=== PATIENT | male | born 1990 | race Caucasian/White ===

== ENCOUNTER 2020-01-10 14:55 | Day surgery (SDC) | payer OTHER ==
[~2020-01-10] VITALS: Ht 182.9 cm; Wt 79.4 kg
--- NOTE | 2020-01-10 14:20 | NUR ---
RECEIVED PT VIA [facility] FROM [facility] WITH ACLS ATTENDANTS. TRANSFERRED TO [facility]. PT AWAKE AND ALERT. ORIENT TO UNIT AND PLAN OF CARE. CONNECTED TO MAINTENANCE LEADER SHOWS SINUS TACH RATE 107. TEMP 100.4 TEMPORAL. PENIS ERECTION NOTED. PAIN SCALE 10/10 WITH RESTLESS AND PAIN WITH MOVEMENT. ONCE AT REST PT IS CALM. IZA WIPES COMPLETED. #18 G SALINE LOCK TO LAC. HISTORY OBTAINED. NKA. REPORTS "GETS TESTED WEEKLY AT [facility] FOR COVID-19 SINCE I DONATE PLATELETS EVERY WEEK. TEST HAS BEEN NEGATIVE. NO TESTING DONE AT [facility]. SIDE RAILS UP X2. CALL LIGHT IN REACH. CALL TO ADMITTING. CALL TO [facility], SPOKE WITH ROLLY JEFFRIES. WILL CONTINUE TO MONITOR.
--- NOTE | 2020-01-10 15:00 | NUR ---
DR NASH HERE. CHART REVIEWED. ORDERS PLACED. AWAITING ADMITTING TO COMPLETE ADMISSION FORMS.
--- NOTE | 2020-01-10 15:20 | NUR ---
CALL REPORT TO ELYSSA ARITA PACU. UPDATED WITH PT STATUS AND HISTORY.
--- NOTE | 2020-01-10 15:30 | NUR ---
TEMP 102.5 TEMPORAL. CALL REPORT TO ROSALBA ARITA PACU. COOLING MEASURES STARTED. CONSENT REVIEWED AND SIGNED. ARMBAND IN PLACE FROM ADMITTING. FALL PRECAUTIONS.
--- NOTE | 2020-01-10 15:55 | NUR ---
IV OBTAINED FROM PHARMACY D5NS. STARTED AT 75CC/HR ORDERED. PT CONNECTED TO PORTABLE FINAL INSTALLER INSPECTOR. ARMBAND IDENTIFIED.
--- NOTE | 2020-01-10 16:00 | NUR ---
PT TAKEN TO HOLDING AREA VIA [employer] AT THIS TIME WITH BELONGINGS BAG ON [employer] BLACK BACKPACK AND CELLPHONE IN BAG.
[2020-01-10 16:02] VITALS: BP 135/93
--- NOTE | 2020-01-10 16:11 | NUR ---
PT REQUESTED TO CALL SISTER HUMZA AND UPDATE HER THAT HE IS HERE AT [facility] [place]. CALL TO CELL PHONE FOR HUMZA, NO ANSWER, MESSAGE LEFT.
--- NOTE | 2020-01-10 20:30 | NUR ---
PT IS ALERT AND ORIENTED X4, BREATHING REGULAR AND UNLABORED ON ROOM AIR. PT ARRIVED TO FLOOR VIA GURNEY FROM OR, S/P CORPORAL DILATION AND DISTAL PENILE SHUNT. PT IS AGITATED AND REQUESTING FOOD PENDING DIET ORDER, AND IS ABLE TO MAKE NEEDS KNOWN. INDWELLING VARGHESE CATHETER IS DRAINING TO GRAVITY, CLEAR YELLOW URINE, AND SURGICAL DRESSING TO PENIS IS CLEAN, DRY, AND INTACT. TELE #2, NSR ON MONITOR. WILL CONTINUE TO MONITOR.
--- NOTE | 2020-01-10 20:31 | NUR ---
RECEIVED PT FROM OR. PT ADMIT FOR PRIAPRISM, S/P CORPORAL DILATION, DISTAL PENILE SHUNT. PT IS A/O X4, VERBAL RESPONSIVE. LUNG SOUND CLEAR BILATERAL, NO COUGH, NO SOB. PT IS ON TELE 2, NSR, DENY ANY CHEST PAIN OR DISCOMFORT, BOWEL SOUND PRESENT ALL 4 QUADRANTS, NO DISTENTION, NO TENDER. PEDAL PULSE PRESENT BOTH FEET, NO EDEMA, PT HAS DRESSING AT GENITAL AREA, FIRST DRESSING, UNABLE TO REMOVE AND TAKE PIX. VARGHESE CATH IN PLACE. URINE IS YELLOW AT THIS TIME. PT IS NOT COOPERATED AT THIS TIME, REFUSED ANSWER SOME OF ADMSSION QUESTIONS. IV AT LEFT AC, NO LEAKING, NO INFILTRATION. ALL ADLS ASSIST, ALL NEED MET, CALL LIGHT IN REACH, WILL CONTINUE TO MONITOR.
[2020-01-10 20:34] VITALS: BP 165/98
[2020-01-10 22:18] VITALS: BP 149/88
[2020-02-02] MEDS ORDERED: ANTIBIOTIC O500 U/GM TOP (09:17)
[2020-02-02] MEDS ORDERED: BACTRIM1 TAB PO (09:18)
== END 2020-01-11 01:30 | disposition home or self-care (01) ==
LOC: DS 14:55 → MU 19:00 → DS 01-11 01:30
PROVIDERS: ATTEND Urology
DX: I99.8 Other disorder of circulatory system (principal); F32.9 Major depressive disorder, single episode, unspecified; Z90.49 Acquired absence of other specified parts of digestive tract
CPT/HCPCS: G0378; J0696; J1170; J2001; J2250; J2405; J2704; J3010